=== PATIENT | male | born 1960 | race Caucasian/White ===

== ENCOUNTER → 2017-12-02 | Outpatient (CLI) | payer OTHER ==
--- NOTE | 2017-12-02 18:27 | PCVCIMAG ---
APPROVED REPORT Study performed: 12/02/2017 13:46:06 EXAM: Comprehensive 2D, Doppler, and color-flow Echocardiogram Patient Location: Echo lab Status: routine BSA: 2.53 HR: 86 bpmBP: 132/84 mmHg Rhythm: Atrial Fibrillation Other Information Study Quality: Adequate Indications CVA/TIA Murmur Atrial Fibrillation edema 2D Dimensions LVEF(%): 54.09 (>50%) IVSd: 16.43 (7-11mm) LVDd: 57.27 mm PWd: 15.98 (7-11mm) LVDs: 41.01 (25-40mm) Left Atrium: 55.63 (27-40mm) Aortic Root: 35.27 mm LV Single Plane 4CH: 54.32 % LV Single Plane 2CH: 54.89 %Donaldson's LVEF: 54.60 % Biplane EF: 55.3 % Volumes Left Atrial Volume (Systole) Single Plane 4CH: 218.14 mLSingle Plane 2CH: 219.33 mL LA ESV Index: 88.00 mL/m2 Aortic Valve AoV Peak Bert.: 1.16 m/s AO Peak Gr.: 5.39 mmHgLVOT Max P.50 mmHg LVOT Max V: 0.79 m/s Pulmonary Valve PV Peak Bert.: 0.72 m/sPV Peak Gr.: 2.09 mmHg Tricuspid Valve TR Peak Bert.: 2.49 m/s TR Peak Gr.: 24.87 mmHg Left Ventricle The left ventricle is borderline dilated. There is normal LV segmental wall motion. Moderate concentric left ventricular hypertrophy. Left ventricular systolic function is normal. The left ventricular ejection fraction is within the normal range. LVEF is 55-60%. This study is not technically sufficient to allow evaluation of the LV diastolic function due to atrial fibrillation. Right Ventricle The right ventricle is normal size. The right ventricular systolic function is normal. Atria Left atrium is severely dilated. Right atrium is severely dilated. Aortic Valve The aortic valve is normal in structure. No aortic regurgitation is present. There is no aortic valvular stenosis. Mitral Valve The mitral valve is normal in structure. Mild mitral regurgitation. No evidence of mitral valve stenosis. Tricuspid Valve The tricuspid valve is normal in structure. Mild tricuspid regurgitation with PAP of 35 mmHg. Pulmonic Valve The pulmonary valve is normal in structure. Mild pulmonic regurgitation. Great Vessels The aortic root is normal in size. IVC is normal in size and collapses with >50% inspiration Pericardium There is no pericardial effusion. There is no pleural effusion. <Conclusion> The left ventricle is borderline dilated. Moderate concentric left ventricular hypertrophy. LVEF is 55-60%. This study is not technically sufficient to allow evaluation of the LV diastolic function due to atrial fibrillation. The right ventricle is normal size. Left atrium is severely dilated. Right atrium is severely dilated. The aortic valve is normal in structure. Mild mitral regurgitation. Mild tricuspid regurgitation with PAP of 35 mmHg. The aortic root is normal in size. There is no pericardial effusion.
== END | disposition home or self-care (01) ==
LOC: PCVCIMAG 14:48
PROVIDERS: ATTEND Internal Medicine Cardiovascular Disease
DX: I08.1 Rheumatic disorders of both mitral and tricuspid valves (principal); I48.91 Unspecified atrial fibrillation
CPT/HCPCS: 93306

== ENCOUNTER → 2018-03-06 | Outpatient (CLI) | payer OTHER ==
[~2018-03-06] MED LIST: REGADENOSON 0.4 MG/5 ML DISP.SYRIN. IV ONE
--- NOTE | 2018-03-06 14:58 | PCVCIMAG ---
APPROVED REPORT Imaging Protocol: Rest Tc-99m/Stress Tc-99m 1 day Study performed: 03/06/2018 09:51:04 Indication: Atrial Fibrillation, Chest pain Patient Location: Out-Patient Stress Nurse: Loraine Peterson RN, July Villanueva RN [place] Tech:[employer] [place] Ht: 6 ft 3 in Wt: 270 lbs BSA: 2.49 m2 HR: 114 bpm BP: 136/75 mmHg BMI: 33.7 Medical History Medications: Diltiazem, Xarelto, Simvastatin Allergies: No known drug allergies Cardiac Risk Factors: Age, HTN, Hyperlipidemia, Tobacco History (Former), CAD, Dyspnea, Afib, CVA valvular insufficiency Pretest Chest Pain Characteristics: No chest pain Exercise History: Physically active Resting Data Rest SPECT myocardial perfusion imaging was performed in supine position 45 minutes following the intravenous injection of 11.5 mCi of Tc-99m Sestamibi. Time of rest injection: 0910 Date: 03/06/2018 Administration Route: IV Administration Site: Right Arm Pharmacologic Stress Pharmacologic stress test was performed by injecting Regadenoson 0.4 mg IV push over 10-15 seconds immediately followed by the intravenous injection of 33.2 mCi of Tc-99m Sestamibi. Time of stress injection: 1020 Date: 03/06/2018 Administration Route: IV Administration Site: Right Arm Gated Stress SPECT was performed 45 minutes after stress injection. The images were gated to evaluate regional wall motion and calculate left ventricular ejection fraction. Stress Test Details Stress Test: Pharmacologic stress testing performed using 0.4 mg of regadenoson per 5 mL given IV over 10 seconds. Reason for pharmacologic stress test: Afib RVR. HRMax Heart Rate (APMHR): 162 bpm Resting HR: 114 bpmTarget HR (85% APMHR): 137 bpm Max HR Achieved: 134 bpm % of APMHR: 82 Recovery HR: 126 bpm BP Resting BP: 136/75 mmHg Max BP: 130/87 mmHg Recovery BP: 117/79 mmHg ECG Resting ECG: Atrial Fibrillation with RVR Stress ECG: Atrial Fibrillation with RVR Arrhythmia: None Recovery ECG: Atrial Fibrillation with RVR Clinical Reason for Termination: Completed protocol Stress Symptoms: None Exercise duration: 0 min 55 sec Symptoms resolved during recovery. Nurse Comments Note Rate; Pt took Diltiazem this morning. Stress ECG Conclusion ECG: Non-ischemic Study Quality Study: Good Study Data Post stress, the left ventricular ejection was 62%.. SSS: 4 SRS: 4 SDS: 1 TID = 0.86. Perfusion No evidence of stress induced ischemia or prior myocardial infarction. Wall Motion Normal left ventricular size and function with no regional wall motion abnormalities. Nuclear Conclusion No evidence of stress induced ischemia or prior myocardial infarction. Normal left ventricular size and function with no regional wall motion abnormalities. Post stress, the left ventricular ejection was 62%. No prior study available for comparison. Interpreted by: Espinoza Cruz MD Electronically Approved: 03/06/2018 14:34:40 <Conclusion> ECG: Non-ischemic
== END | disposition home or self-care (01) ==
LOC: PCVCIMAG 08:57
PROVIDERS: ATTEND Internal Medicine Cardiovascular Disease
DX: I48.91 Unspecified atrial fibrillation (principal); R07.9 Chest pain, unspecified; I25.10 Atherosclerotic heart disease of native coronary artery without angina pectoris; E78.5 Hyperlipidemia, unspecified; Z87.891 Personal history of nicotine dependence
CPT/HCPCS: 78452; 93017; A9500; J2785

== ENCOUNTER → 2019-03-19 | Outpatient (CLI) | payer OTHER ==
--- NOTE | 2019-03-19 16:47 | PCVCIMAG ---
APPROVED REPORT Imaging Protocol: Rest Tc-99m/Stress Tc-99m 1 day Study performed: 03/19/2019 14:32:42 Indication: Atrial Fibrillation, Chest pain Patient Location: Out-Patient Stress Nurse: oLraine Peterson RN, July Villanueva RN [place] Tech:Kaity Morgan [facility] Ht: 6 ft 3 in Wt: 285 lbs BSA: 2.55 m2 HR: 107 bpm BP: 139/87 mmHg BMI: 35.6 Rhythm: Atrial Fibrillation Medical History Medical History: HTN, Hyperlipidemia, Former Smoker, Atrial Fibrillation Medications: Cartia, Zocor, Xarelto Allergies: No known drug allergies Cardiac Risk Factors: Age Pretest Chest Pain Characteristics: No chest pain Resting Data Rest SPECT myocardial perfusion imaging was performed in supine position 45 minutes following the intravenous injection of 11.1 mCi of Tc-99m Sestamibi. Time of rest injection: 1330 Administration Route: IV Administration Site: Right AC Pharmacologic Stress Pharmacologic stress test was performed by injecting Regadenoson 0.4 mg IV push over 10-15 seconds immediately followed by the intravenous injection of 33.6 mCi of Tc-99m Sestamibi. Time of stress injection: 1500 Date: 03/19/2019 Administration Route: IV Administration Site: Right AC Gated Stress SPECT was performed 45 minutes after stress injection. The images were gated to evaluate regional wall motion and calculate left ventricular ejection fraction. Stress Test Details Stress Test: Pharmacologic stress testing performed using 0.4 mg of regadenoson per 5 mL given IV over 10 seconds. Reason for pharmacologic stress test: physical limitation. HRMax Heart Rate (APMHR): 161 bpm Resting HR: 107 bpmTarget HR (85% APMHR): 136 bpm Max HR Achieved: 131 bpm % of APMHR: 81 Recovery HR: 115 bpm BP Resting BP: 139/87 mmHg Max BP: 133/79 mmHg Recovery BP: 140/67 mmHg ECG Resting ECG: Atrial Fibrillation Stress ECG: Atrial Fibrillation Arrhythmia: None Recovery ECG: Atrial Fibrillation Clinical Reason for Termination: Completed protocol Stress Symptoms: Abdominal discomfort, Flushed Symptoms resolved with caffeine. Stress ECG Conclusion ECG: Non-ischemic Study Quality Study: Good Study Data Post stress, the left ventricular ejection was 64%.. SSS: 5 SRS: 6 SDS: 0 TID = 1.03. Perfusion No evidence of stress induced ischemia or prior myocardial infarction. Wall Motion Normal left ventricular size and function with no regional wall motion abnormalities. Nuclear Conclusion No evidence of stress induced ischemia or prior myocardial infarction. Normal left ventricular size and function with no regional wall motion abnormalities. Post stress, the left ventricular ejection was 64%. No change since prior study dated February 2018. Interpreted by: Espinoza Cruz MD Electronically Approved: 03/19/2019 16:21:01 <Conclusion> ECG: Non-ischemic
== END | disposition home or self-care (01) ==
LOC: PCVCIMAG 13:04
PROVIDERS: ATTEND Internal Medicine Cardiovascular Disease
DX: I48.21 Permanent atrial fibrillation (principal); I10 Essential (primary) hypertension; E78.5 Hyperlipidemia, unspecified; Z87.891 Personal history of nicotine dependence
CPT/HCPCS: 78452; 93017; A9500; J2785